=== PATIENT | male | born 1965 | race American Indian/Alaskan Native ===

== ENCOUNTER 2021-06-09 13:44 | Emergency (ER) | payer MEDICARE ==
--- NOTE | 2021-06-09 13:56 | Event Note ---
ED Screening Note ED Screening Note: 55 yo comes to er with 2 w hx abd pain, bloating, distention, gassy, belching often; and now dark stools. No vomiting blood Admits to 6 pack per day and 2 shots per day - for the last 2 years no drugs/etoh/thc pmh htn ppm for WPW chronic pain rx clonidine antibiotics for r elbow abrasion percocet QID mom dec chf dad dec drug od has had no colonoscopy. no hx of the same This initial assessment/diagnostic orders/clinical plan/treatment(s) is/are subject to change based on patients health status, clinical progression and re- assessment by fellow clinical providers in the ED. Further treatment and workup at subsequent clinical providers discretion. Patient/guardian urged not to elope from the ED as their condition may be serious if not clinically assessed and managed. Initial orders include: labs
[2021-06-09 14:50] LABS: Hematocrit 35.5 % (35.5-45.6); Mean Corpuscular HGB Conc 34 % (32-34); Mean Corpuscular Volume 91 fl (84-94); Red Blood Count 3.88 M/mm3 (3.65-5.03); Red Cell Distribution Width 19.1 % (13.2-15.2)
[2021-06-09 14:51] LABS: Platelet Count 70 K/mm3 (140-440)
[2021-06-09 14:56] LABS: INR 1.36 (0.87-1.13)
[2021-06-09 14:58] LABS: Alanine Aminotransferase 164 units/L (7-56); Albumin 2.6 g/dL (3.9-5); Blood Urea Nitrogen 12 mg/dL (9-20); Calcium 7.9 mg/dL (8.4-10.2); Hemolysis Index 0
[2021-06-09 15:05] LABS: BUN/Creatinine Ratio 20
--- NOTE | 2021-06-09 15:38 | XRay Report ---
ABDOMEN 1 VIEW(S) INDICATION / CLINICAL INFORMATION: abd bloating. COMPARISON: None available. FINDINGS: TUBES / LINES: None. BOWEL GAS PATTERN/EXTRALUMINAL GAS: No significant abnormality. No pneumatosis or secondary signs of free air. ADDITIONAL FINDINGS: No significant additional findings. IMPRESSION: 1. No acute findings. Signer Name: Wade Medina MD Signed: 06/09/2021 3:34 PM Workstation Name: [id number]
[2021-06-09 15:42] LABS: Bilirubin,Urine MOD (Negative); Blood,Urine NEG (Negative); Color,Urine Amber (Yellow); Mucus,Urine 3+ /HPF
[2021-06-09 15:45] LABS: Ictotest,Urine Positive (Negative)
[2021-06-09 16:37] LABS: Total Cells Counted 100
[2021-06-09 16:38] LABS: Anisocytosis 1+; Platelet Estimate Consistent w Auto; Poikilocytosis 1+; Target Cells 1+
--- NOTE | 2021-06-09 17:58 | Cat Scan Report ---
CT ABDOMEN AND PELVIS WITH IV CONTRAST INDICATION: elevated bili LFT 100 ML OMNI 300. COMPARISON: None available. TECHNIQUE: All CT scans at this facility use dose modulation, automated exposure control, iterative reconstructi on or weight based dosing, when appropriate, to reduce radiation dose to as low as reasonably achieva ble. FINDINGS: Lung Bases: No significant abnormality. Skeletal System: No acute abnormality. ABDOMEN: Liver: Very mild steatosis. No acute abnormality. Gallbladder: The gallbladder is mildly distended. There are a few punctate sand-like stones in the fu ndus. No gallbladder wall thickening. Bile Ducts: No significant abnormality. Pancreas: No significant abnormality. Spleen: No significant abnormality. Adrenals: No significant abnormality. Right Kidney: No significant abnormality. Left Kidney: No significant abnormality. Upper GI tract: Small hiatal hernia. Otherwise unremarkable. Lymph Nodes: No significant adenopathy. Aorta: No significant abnormality. Additional Findings: No significant abnormality. PELVIS: Colon: No acute abnormality. Urinary Bladder and Distal Ureters: No significant abnormality. Appendix: Not visualized. Lymph Nodes: No significant adenopathy. Additional Findings: There is trace free fluid in the pelvis. IMPRESSION: 1. There is trace free fluid in the left pelvis. As of uncertain etiology and could be related to mi ld enteritis. No bowel obstruction is seen. There is no colonic inflammation seen. 2. Incidental findings, as above. Signer Name: Bud Crow MD Signed: 06/09/2021 5:54 PM Workstation Name: [id number]
--- NOTE | 2021-06-09 18:11 | Emergency Department Report ---
ED Abdominal Pain HPI - General Chief Complaint: GI Bleed Stated Complaint: BLOODY STOOLS Time Seen by Provider: 06/09/21 13:53 Source: patient Mode of arrival: Ambulatory Limitations: No Limitations - History of Present Illness Initial Comments: Patient is a 55-year-old F [place] male with a past medical history of heavy alcohol abuse who is presenting with abdominal bloating and cramping. Patient states that symptoms been going on for approximately a month. States occasionally will have some loose stools. States his stools are dark in color. States he is passing a large amount of flatus and has been belching quite a bit as well. Feels as though his abdomen is distended. Denies cough cold congestion fevers chills nausea vomiting at this time. - Related Data Previous Rx's Medication Instructions Recorded Last Taken Type Dicyclomine [Bentyl] 20 mg PO QID #20 tablet 06/09/21 Unknown Rx Famotidine [Pepcid] 40 mg PO QHS #10 tablet 06/09/21 Unknown Rx Simethicone [Anti-Gas] 180 mg PO QID #30 capsule 06/09/21 Unknown Rx traMADoL [Ultram] 50 mg PO Q6HR PRN #12 tablet 06/09/21 Unknown Rx Allergies Allergy/AdvReac Type Severity Reaction Status Date / Time No Known Allergies Allergy Verified 06/09/21 13:47 ED Review of Systems ROS: Stated complaint: BLOODY STOOLS Other details as noted in HPI Comment: All other systems reviewed and negative ED Past Medical Hx - Medications Home Medications: Home Medications Medication Instructions Recorded Confirmed Last Taken Type Dicyclomine [Bentyl] 20 mg PO QID #20 tablet 06/09/21 Unknown Rx Famotidine [Pepcid] 40 mg PO QHS #10 tablet 06/09/21 Unknown Rx Simethicone [Anti-Gas] 180 mg PO QID #30 capsule 06/09/21 Unknown Rx traMADoL [Ultram] 50 mg PO Q6HR PRN #12 tablet 06/09/21 Unknown Rx ED Physical Exam - General Limitations: No Limitations General appearance: alert, in no apparent distress - Head Head exam: Present: atraumatic, normocephalic - Eye Eye exam: Present: PERRL, EOMI, scleral icterus - ENT ENT exam: Present: mucous membranes moist - Neck Neck exam: Present: normal inspection - Respiratory Respiratory exam: Present: normal lung sounds bilaterally. Absent: respiratory distress, wheezes, rales, rhonchi - Cardiovascular Cardiovascular Exam: Present: regular rate, normal rhythm, normal heart sounds. Absent: systolic murmur, diastolic murmur, rubs, gallop - GI/Abdominal GI/Abdominal exam: Present: soft, distended, normal bowel sounds. Absent: tenderness, guarding, rebound, rigid - Rectal Rectal exam: Present: deferred - Extremities Exam Extremities exam: Present: normal inspection - Back Exam Back exam: Present: normal inspection - Neurological Exam Neurological exam: Present: alert, oriented X3 - Psychiatric Psychiatric exam: Present: normal affect, normal mood - Skin Skin exam: Present: warm, dry, intact, normal color. Absent: rash ED Course Vital Signs 06/09/21 06/09/21 13:48 18:12 Temperature 97.6 F 98.5 F Pulse Rate 98 H 88 Respiratory 18 18 Rate Blood Pressure 128/91 135/101 O2 Sat by Pulse 99 99 Oximetry ED Medical Decision Making - Lab Data Result diagrams: 06/09/21 14:19 06/09/21 14:19 Lab Results 06/09/21 06/09/21 06/09/21 Range/Units 14:19 14:19 14:19 WBC 5.5 (4.5-11.0) K/mm3 RBC 3.88 (3.65-5.03) M/mm3 Hgb 12.0 (11.8-15.2) gm/dl Hct 35.5 (35.5-45.6) % MCV 91 (84-94) fl MCH 31 (28-32) pg MCHC 34 (32-34) % RDW 19.1 H (13.2-15.2) % Plt Count 70 L (140-440) K/mm3 Lymph % (Auto) Clinical Laboratory Service Teacher Add Manual Diff Complete Total Counted 100 Seg Neutrophils % Clinical Laboratory Service Teacher Seg Neuts % (Manual) 73.0 H (40.0-70.0) % Lymphocytes % (Manual) 19.0 (13.4-35.0) % Monocytes % (Manual) 7.0 (0.0-7.3) % Basophils % (Manual) 1.0 (0.0-1.8) % Nucleated RBC % Not Reportable Seg Neutrophils # Man 4.0 (1.8-7.7) K/mm3 Band Neutrophils # 0.0 K/mm3 Lymphocytes # (Manual) 1.0 L (1.2-5.4) K/mm3 Abs React Lymphs (Man) 0.0 K/mm3 Monocytes # (Manual) 0.4 (0.0-0.8) K/mm3 Eosinophils # (Manual) 0.0 (0.0-0.4) K/mm3 Basophils # (Manual) 0.1 (0.0-0.1) K/mm3 Metamyelocytes # 0.0 K/mm3 Myelocytes # 0.0 K/mm3 Promyelocytes # 0.0 K/mm3 Blast Cells # 0.0 K/mm3 WBC Morphology Not Reportable Hypersegmented Neuts Not Reportable Hyposegmented Neuts Not Reportable Hypogranular Neuts Not Reportable Smudge Cells Not Reportable Toxic Granulation Not Reportable Toxic Vacuolation Not Reportable Dohle Bodies Not Reportable Pelger-Huet Anomaly Not Reportable Rhys Rods Not Reportable Platelet Estimate Consistent w auto Clumped Platelets Not Reportable Plt Clumps, EDTA Not Reportable Large Platelets Not Reportable Giant Platelets Not Reportable Platelet Satelliting Not Reportable Plt Morphology Comment Not Reportable RBC Morphology Not Reportable Dimorphic RBCs Not Reportable Polychromasia Not Reportable Hypochromasia Not Reportable Poikilocytosis 1+ Anisocytosis 1+ Microcytosis Not Reportable Macrocytosis Not Reportable Spherocytes Not Reportable Pappenheimer Bodies Not Reportable Sickle Cells Not Reportable Target Cells 1+ Tear Drop Cells Not Reportable Ovalocytes Not Reportable Helmet Cells Not Reportable [place] Bodies Not Reportable [place] Rings Not Reportable Day Cells Not Reportable Bite Cells Not Reportable Crenated Cell Not Reportable Elliptocytes Not Reportable Acanthocytes (Spur) Not Reportable Rouleaux Not Reportable Hemoglobin C Crystals Not Reportable Schistocytes Not Reportable Malaria parasites Not Reportable Edwin Bodies Not Reportable Hem Pathologist Commnt No PT 17.3 H (12.2-14.9) Sec. INR 1.36 H (0.87-1.13) Sodium 136 L (137-145) mmol/L Potassium 4.2 (3.6-5.0) mmol/L Chloride 102.9 (98-107) mmol/L Carbon Dioxide 20 L (22-30) mmol/L Anion Gap 17 mmol/L BUN 12 (9-20) mg/dL Creatinine 0.6 L (0.8-1.3) mg/dL Estimated GFR > 60 ml/min BUN/Creatinine Ratio 20 % Glucose 120 H (75-100) mg/dL Calcium 7.9 L (8.4-10.2) mg/dL Total Bilirubin 7.20 H (0.1-1.2) mg/dL AST 347 H (5-40) units/L ALT 164 H (7-56) units/L Alkaline Phosphatase 316 H (35-129) units/L Ammonia (25-60) umol/L Total Protein 5.9 L (6.3-8.2) g/dL Albumin 2.6 L (3.9-5) g/dL Albumin/Globulin Ratio 0.8 % Lipase 101 H (13-60) units/L Urine Color (Yellow) Urine Turbidity (Clear) Urine pH (5.0-7.0) Ur Specific [place] (1.003-1.030) Urine Protein (Negative) mg/dL Urine Glucose (UA) (Negative) mg/dL Urine Ketones (Negative) mg/dL Urine Blood (Negative) Urine Nitrite (Negative) Urine Bilirubin (Negative) Urine Ictotest (Negative) Urine Urobilinogen (<2.0) mg/dL Ur Leukocyte Esterase (Negative) Urine WBC (Auto) (0.0-6.0) /HPF Urine RBC (Auto) (0.0-6.0) /HPF U Epithel Cells (Auto) (0-13.0) /HPF Urine Mucus /HPF 06/09/21 06/09/21 Range/Units 14:19 Unknown WBC (4.5-11.0) K/mm3 RBC (3.65-5.03) M/mm3 Hgb (11.8-15.2) gm/dl Hct (35.5-45.6) % MCV (84-94) fl MCH (28-32) pg MCHC (32-34) % RDW (13.2-15.2) % Plt Count (140-440) K/mm3 Lymph % (Auto) Add Manual Diff Total Counted Seg Neutrophils % Seg Neuts % (Manual) (40.0-70.0) % Lymphocytes % (Manual) (13.4-35.0) % Monocytes % (Manual) (0.0-7.3) % Basophils % (Manual) (0.0-1.8) % Nucleated RBC % Seg Neutrophils # Man (1.8-7.7) K/mm3 Band Neutrophils # K/mm3 Lymphocytes # (Manual) (1.2-5.4) K/mm3 Abs React Lymphs (Man) K/mm3 Monocytes # (Manual) (0.0-0.8) K/mm3 Eosinophils # (Manual) (0.0-0.4) K/mm3 Basophils # (Manual) (0.0-0.1) K/mm3 Metamyelocytes # K/mm3 Myelocytes # K/mm3 Promyelocytes # K/mm3 Blast Cells # K/mm3 WBC Morphology Hypersegmented Neuts Hyposegmented Neuts Hypogranular Neuts Smudge Cells Toxic Granulation Toxic Vacuolation Dohle Bodies Pelger-Huet Anomaly Rhys Rods Platelet Estimate Clumped Platelets Plt Clumps, EDTA Large Platelets Giant Platelets Platelet Satelliting Plt Morphology Comment RBC Morphology Dimorphic RBCs Polychromasia Hypochromasia Poikilocytosis Anisocytosis Microcytosis Macrocytosis Spherocytes Pappenheimer Bodies Sickle Cells Target Cells Tear Drop Cells Ovalocytes Helmet Cells [place] Bodies [place] Rings Day Cells Bite Cells Crenated Cell Elliptocytes Acanthocytes (Spur) Rouleaux Hemoglobin C Crystals Schistocytes Malaria parasites Edwin Bodies Hem Pathologist Commnt PT (12.2-14.9) Sec. INR (0.87-1.13) Sodium (137-145) mmol/L Potassium (3.6-5.0) mmol/L Chloride (98-107) mmol/L Carbon Dioxide (22-30) mmol/L Anion Gap mmol/L BUN (9-20) mg/dL Creatinine (0.8-1.3) mg/dL Estimated GFR ml/min BUN/Creatinine Ratio % Glucose (75-100) mg/dL Calcium (8.4-10.2) mg/dL Total Bilirubin (0.1-1.2) mg/dL AST (5-40) units/L ALT (7-56) units/L Alkaline Phosphatase (35-129) units/L Ammonia 36.0 (25-60) umol/L Total Protein (6.3-8.2) g/dL Albumin (3.9-5) g/dL Albumin/Globulin Ratio % Lipase (13-60) units/L Urine Color Molly (Yellow) Urine Turbidity Clear (Clear) Urine pH 5.0 (5.0-7.0) Ur Specific [place] 1.032 H (1.003-1.030) Urine Protein 30 mg/dl (Negative) mg/dL Urine Glucose (UA) Neg (Negative) mg/dL Urine Ketones Neg (Negative) mg/dL Urine Blood Neg (Negative) Urine Nitrite Neg (Negative) Urine Bilirubin Mod (Negative) Urine Ictotest Positive (Negative) Urine Urobilinogen 4.0 (<2.0) mg/dL Ur Leukocyte Esterase Neg (Negative) Urine WBC (Auto) 3.0 (0.0-6.0) /HPF Urine RBC (Auto) 5.0 (0.0-6.0) /HPF U Epithel Cells (Auto) 1.0 (0-13.0) /HPF Urine Mucus 3+ /HPF - Radiology Data [facility] [address] [id number] Cat Scan Report Signed Patient: TIKA AVILEZ MR#: [id number] : 1965 Acct:[id number] Age/Sex: 55 / M ADM Date: 06/09/21 Loc: ED Attending Dr: Ordering Physician: JONATHAN LYNN MD Date of Service: 06/09/21 Procedure(s): CT abdomen pelvis w con Accession Number(s): [id number] cc: JONATHAN LYNN MD CT ABDOMEN AND PELVIS WITH IV CONTRAST INDICATION: elevated bili LFT 100 ML OMNI 300. COMPARISON: None available. TECHNIQUE: All CT scans at this facility use dose modulation, automated exposure control, iterative reconstruction or weight based dosing, when appropriate, to reduce radiation dose to as low as reasonably achievable. FINDINGS: Lung Bases: No significant abnormality. Skeletal System: No acute abnormality. ABDOMEN: Liver: Very mild steatosis. No acute abnormality. Gallbladder: The gallbladder is mildly distended. There are a few punctate sand-like stones in the fundus. No gallbladder wall thickening. Bile Ducts: No significant abnormality. Pancreas: No significant abnormality. Spleen: No significant abnormality. Adrenals: No significant abnormality. Right Kidney: No significant abnormality. Left Kidney: No significant abnormality. Upper GI tract: Small hiatal hernia. Otherwise unremarkable. Lymph Nodes: No significant adenopathy. Aorta: No significant abnormality. Additional Findings: No significant abnormality. PELVIS: Colon: No acute abnormality. Urinary Bladder and Distal Ureters: No significant abnormality. Appendix: Not visualized. Lymph Nodes: No significant adenopathy. Additional Findings: There is trace free fluid in the pelvis. IMPRESSION: 1. There is trace free fluid in the left pelvis. As of uncertain etiology and could be related to mild enteritis. No bowel obstruction is seen. There is no colonic inflammation seen. 2. Incidental findings, as above. Signer Name: Bud Crow MD Signed: 06/09/2021 5:54 PM Workstation Name: [id number] Transcribed By: RJ Dictated By: Bud Crow MD Electronically Authenticated By: Bud Crow MD Signed Date/Time: 06/09/21 8264 - Medical Decision Making Patient is a 55-year-old F [place] male who is presenting with some bloating and abdominal discomfort. Patient was jaundiced on physical exam. Bilirubin is elevated. Patient is INR is less than 1.5 but is mild GI bleeding likely secondary to some mild coagulopathy. Patient is not encephalopathic. Patient stable for outpt treatment Critical care attestation.: If time is entered above; I have spent that time in minutes in the direct care of this critically ill patient, excluding procedure time. ED Disposition Clinical Impression: Hyperbilirubinemia GI bleed Qualifiers: GI bleed type/associated pathology: anorectal hemorrhage Qualified Code(s): K62.5 - Hemorrhage of anus and rectum Alcoholic hepatitis Qualifiers: Ascites presence: unspecified Qualified Code(s): K70.10 - Alcoholic hepatitis without ascites Disposition: 01 HOME / SELF CARE / HOMELESS Is pt being admited?: No Does the pt Need Aspirin: No Condition: Stable Instructions: Alcoholic Liver Disease, Gastrointestinal Bleeding, Jaundice, Adult, [id number] Referrals: RITA ORDONEZ MD [Staff Physician] - FAY Forms: Accompanied Note Time of Disposition: 18:55
[2021-06-09 18:16] VITALS: BP 135/101
== END 2021-06-09 19:02 | disposition home or self-care (01) ==
LOC: ED 13:44
DX: E80.6 Other disorders of bilirubin metabolism (principal); K92.2 Gastrointestinal hemorrhage, unspecified; K70.10 Alcoholic hepatitis without ascites
CPT/HCPCS: 36415; 74018; 74177; 80053; 81001; 82140; 83690; 85007; 85025; 85610; 99284; Q9967

== ENCOUNTER 2021-06-11 09:53 | Emergency (ER) | payer MEDICARE ==
[2021-06-11 11:55] LABS: Albumin 2.5 g/dL (3.9-5); Bilirubin,Direct 6.7 mg/dL (0-0.2)
[2021-06-11] MEDS ORDERED: LORazepam 1 MG TAB PO ONE (12:07)
[2021-06-11 12:10] LABS: Hepatitis C Virus Antibody Non-Reactive (NonReactive)
[2021-06-11 12:18] LABS: Hepatitis B Surface Antigen Nonreactive (Negative)
--- NOTE | 2021-06-11 12:20 | Emergency Department Report ---
ED Abdominal Pain HPI - General Chief Complaint: Abdominal Pain Stated Complaint: GI BLEED/SEEN HERE 2 DAYS AGO FOR SAME Time Seen by Provider: 06/11/21 11:07 Source: patient Mode of arrival: Ambulatory Limitations: No Limitations - History of Present Illness Initial Comments: 55-year-old male with a past medical history of alcohol abuse, hypertension, and previous appendectomy presents to the hospital complaining of continued rectal bleeding with bowel movements for the past 4 days. Patient states that after she has 2 loose stools daily that contain gross blood. Patient was seen here 2 days ago on June 09 with similar complaint in addition to abdominal bloating and epigastric/reflux pain. Patient has been taking the prescribed Bentyl, Pep dax, simethicone and tramadol with improvement and GERD and abdominal pain symptoms. His abdominal bloating is unchanged. He no longer has any abdominal pain and is just expresses concern about continued bleeding. Patient quit drinking alcohol 2 days ago after being informed of his liver enzyme a bnormalities that have resulted due to his alcohol abuse. Patient does complain of feeling trembling and shaking x1 day. No history of seizures. Patient tried to call the GI doctor referral provided on discharge paperwork however, earliest appointment was in August. - Related Data Previous Rx's Medication Instructions Recorded Last Taken Type Dicyclomine [Bentyl] 20 mg PO QID #20 tablet 06/09/21 Unknown Rx Famotidine [Pepcid] 40 mg PO QHS #10 tablet 06/09/21 Unknown Rx Simethicone [Anti-Gas] 180 mg PO QID #30 capsule 06/09/21 Unknown Rx traMADoL [Ultram] 50 mg PO Q6HR PRN #12 tablet 06/09/21 Unknown Rx chlordiazePOXIDE [Librium] 25 mg PO Q6H #20 capsule 06/11/21 Unknown Rx Allergies Allergy/AdvReac Type Severity Reaction Status Date / Time No Known Allergies Allergy Verified 06/09/21 13:47 ED Review of Systems ROS: Stated complaint: GI BLEED/SEEN HERE 2 DAYS AGO FOR SAME Other details as noted in HPI Comment: All other systems reviewed and negative ED Past Medical Hx - Past Medical History Previous Medical History?: Yes Hx Hypertension: Yes Additional medical history: pacer - Surgical History Past Surgical History?: Yes Hx Appendectomy: Yes - Social History Smoking Status: Current Every Day Smoker Substance Use Type: Alcohol - Medications Home Medications: Home Medications Medication Instructions Recorded Confirmed Last Taken Type Dicyclomine [Bentyl] 20 mg PO QID #20 tablet 06/09/21 Unknown Rx Famotidine [Pepcid] 40 mg PO QHS #10 tablet 06/09/21 Unknown Rx Simethicone [Anti-Gas] 180 mg PO QID #30 capsule 06/09/21 Unknown Rx traMADoL [Ultram] 50 mg PO Q6HR PRN #12 tablet 06/09/21 Unknown Rx chlordiazePOXIDE [Librium] 25 mg PO Q6H #20 capsule 06/11/21 Unknown Rx ED Physical Exam - General Limitations: No Limitations - Other Other exam information: General: No acute distress Head: Atraumatic Eyes: normal appearance, icteric sclera ENT: Moist mucous membranes Neck: Normal appearance, no midline tenderness Chest: Clear to auscultation bilaterally CV: Regular rate and rhythm Abdomen: Soft, normal bowel sounds, nontender, bloated appearing abdomen, no rebound or guarding Rectal: No external lesions, light brown stool with pink/red blood Back: Normal inspection Extremity: Normal inspection, full range of motion Neuro: Alert O x 3, no facial asymmetry, speech clear, no gross motor sensory deficit Psych: Appropriate behavior Skin: No rash ED Course Vital Signs 06/11/21 06/11/21 06/11/21 10:17 12:24 14:28 Temperature 98.1 F 97.5 F L Pulse Rate 98 H 62 63 Respiratory 20 18 18 Rate Blood Pressure 141/83 136/87 Blood Pressure 121/72 [Right] O2 Sat by Pulse 100 100 100 Oximetry - Reevaluation(s) Reevaluation #1: 06/11/21 15:21 Patient feeling better after receiving p.o. Ativan. Heart rate in the 70s. No significant tremor noted on exam - Consultations Consultation #1: 06/11/21 14:[address] Beckwith with GI personal care assistant. States that patient has an appointment in the [place] office with Dr. Arellano tomorrow. Recommends that patient go to that appointment as scheduled. Patient does not require admission or further work-up today ED Medical Decision Making - Lab Data Result diagrams: 06/11/21 11:16 06/11/21 11:16 Lab Results 06/11/21 06/11/21 06/11/21 Range/Units 11:16 11:16 11:16 WBC 5.5 (4.5-11.0) K/mm3 RBC 3.47 L (3.65-5.03) M/mm3 Hgb 10.9 L (11.8-15.2) gm/dl Hct 32.0 L (35.5-45.6) % MCV 92 (84-94) fl MCH 31 (28-32) pg MCHC 34 (32-34) % RDW 18.7 H (13.2-15.2) % Plt Count 50 L (140-440) K/mm3 PT 14.8 (12.2-14.9) Sec. INR 1.11 (0.87-1.13) APTT 37.1 H (24.2-36.6) Sec. Sodium (137-145) mmol/L Potassium (3.6-5.0) mmol/L Chloride (98-107) mmol/L Carbon Dioxide (22-30) mmol/L Anion Gap mmol/L BUN (9-20) mg/dL Creatinine (0.8-1.3) mg/dL Estimated GFR ml/min BUN/Creatinine Ratio % Glucose (75-100) mg/dL Calcium (8.4-10.2) mg/dL Magnesium 2.00 (1.7-2.3) mg/dL Total Bilirubin 8.00 H (0.1-1.2) mg/dL Direct Bilirubin 6.7 H (0-0.2) mg/dL Indirect Bilirubin 1.3 mg/dL AST 181 H (5-40) units/L ALT 112 H (7-56) units/L Alkaline Phosphatase 285 H (35-129) units/L Total Protein 5.7 L (6.3-8.2) g/dL Albumin 2.5 L (3.9-5) g/dL Albumin/Globulin Ratio 0.8 % Lipase 66 H (13-60) units/L Plasma/Serum Alcohol (0-0.07) % Hepatitis A IgM Ab (NonReactive) Hep Bs Antigen (Negative) Hep B Core IgM Ab (NonReactive) Hepatitis C Antibody (NonReactive) 06/11/21 06/11/21 06/11/21 Range/Units 11:16 11:16 11:51 WBC (4.5-11.0) K/mm3 RBC (3.65-5.03) M/mm3 Hgb (11.8-15.2) gm/dl Hct (35.5-45.6) % MCV (84-94) fl MCH (28-32) pg MCHC (32-34) % RDW (13.2-15.2) % Plt Count (140-440) K/mm3 PT (12.2-14.9) Sec. INR (0.87-1.13) APTT (24.2-36.6) Sec. Sodium 135 L (137-145) mmol/L Potassium 4.5 (3.6-5.0) mmol/L Chloride 102.4 (98-107) mmol/L Carbon Dioxide 23 (22-30) mmol/L Anion Gap 14 mmol/L BUN 11 (9-20) mg/dL Creatinine 0.7 L (0.8-1.3) mg/dL Estimated GFR > 60 ml/min BUN/Creatinine Ratio 16 % Glucose 87 (75-100) mg/dL Calcium 8.1 L (8.4-10.2) mg/dL Magnesium (1.7-2.3) mg/dL Total Bilirubin (0.1-1.2) mg/dL Direct Bilirubin (0-0.2) mg/dL Indirect Bilirubin mg/dL AST (5-40) units/L ALT (7-56) units/L Alkaline Phosphatase (35-129) units/L Total Protein (6.3-8.2) g/dL Albumin (3.9-5) g/dL Albumin/Globulin Ratio % Lipase (13-60) units/L Plasma/Serum Alcohol < 0.01 (0-0.07) % Hepatitis A IgM Ab Non-reactive (NonReactive) Hep Bs Antigen Nonreactive (Negative) Hep B Core IgM Ab Non-reactive (NonReactive) Hepatitis C Antibody Non-reactive (NonReactive) - Medical Decision Making 55-year-old male presents to the hospital with rectal bleeding and likely alcohol hepatitis. Patient has chronic thrombocytopenia likely secondary to alcohol abuse. Mild drop in H&H noted however patient still does not require admission and blood transfusion at this time. No sign of instability based on vital signs and clinical presentation. I called Dr. Lafleur to arrange for earlier outpatient follow-up since patient informed me that the soonest he could follow-up was in August. I was informed by Dr. Cadena that patient has a appointment at the [place] office with Dr. Arellano tomorrow. Patient did require Ativan for mild tremors but however, no signs of tachycardia. Patient will be placed on Librium taper for alcohol withdrawal symptoms and encouraged to follow-up tomorrow as scheduled. Patient was provided copies of ED work-up to take to his doctor visit tomorrow Critical Care Time: No Critical care attestation.: If time is entered above; I have spent that time in minutes in the direct care of this critically ill patient, excluding procedure time. ED Disposition Clinical Impression: Alcoholic hepatitis, GI bleed, Hyperbilirubinemia, Thrombocytopenia, Alcohol dependence Disposition: HOME / SELF CARE / HOMELESS Is pt being admited?: No Does the pt Need Aspirin: No Condition: Stable Instructions: Alcoholic Liver Disease, Lower Gastrointestinal Bleeding, Alcohol Abuse and Dependence Information, Adult Additional Instructions: Go to your GI doctor's appointment as scheduled tomorrow. Follow-up with your primary care doctor provided. Return if symptoms worsen as indicated by your discharge instructions. Take the copy of the results provided to your doctor's visit Take the prescribed medication in order to help with alcohol withdrawal symptoms. Prescriptions: chlordiazePOXIDE [Librium] 25 mg PO Q6H #20 capsule Referrals: TREV BUITRAGO MD [Staff Physician] - 3-5 Days (primary care doctor ) Time of Disposition: 15:09
[2021-06-11 12:25] LABS: Blood Urea Nitrogen 11 mg/dL (9-20); Calcium 8.1 mg/dL (8.4-10.2); Hemolysis Index 0
[2021-06-11 12:28] LABS: BUN/Creatinine Ratio 16
[2021-06-11 12:55] LABS: INR 1.11 (0.87-1.13)
[2021-06-11 12:57] LABS: Partial Thromboplastin Time 37.1 Sec. (24.2-36.6)
[2021-06-11 13:21] LABS: Hemoglobin 10.9 gm/dl (11.8-15.2); Mean Corpuscular HGB Conc 34 % (32-34); Mean Corpuscular Volume 92 fl (84-94); Red Blood Count 3.47 M/mm3 (3.65-5.03); Red Cell Distribution Width 18.7 % (13.2-15.2)
[2021-06-11 13:23] LABS: Platelet Count 50 K/mm3 (140-440)
[2021-06-11 14:30] VITALS: BP 121/72
[2021-06-11 23:13] LABS: Total Cells Counted 100
[2021-06-11 23:14] LABS: Anisocytosis 1+; Platelet Estimate Consistent w Auto; Target Cells 1+
== END 2021-06-11 15:33 | disposition home or self-care (01) ==
LOC: ED 09:53
DX: K92.2 Gastrointestinal hemorrhage, unspecified (principal); K70.10 Alcoholic hepatitis without ascites; E80.6 Other disorders of bilirubin metabolism; D69.6 Thrombocytopenia, unspecified; F10.20 Alcohol dependence, uncomplicated; I10 Essential (primary) hypertension; Z98.890 Other specified postprocedural states; F17.200 Nicotine dependence, unspecified, uncomplicated; Z72.89 Other problems related to lifestyle
CPT/HCPCS: 36415; 80048; 80074; 80076; 80320; 82271; 83690; 83735; 85007; 85025; 85610; 85730; 99283; G0480

== ENCOUNTER 2021-12-14 12:20 | Emergency (ER) | payer MEDICARE | END 2021-12-14 12:30 | disposition left against medical advice (07) | LOC: ED 12:20 | DX: I10 Essential (primary) hypertension (principal); Z53.21 Procedure and treatment not carried out due to patient leaving prior to being seen by health care provider ==